=== PATIENT | female | born 1995 | race Caucasian/White ===

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

== ENCOUNTER 2017-01-08 17:19 | Emergency (ER) | payer SELFPAY | END 2017-01-08 17:40 | disposition home or self-care (01) | LOC: BURERS 17:19 | DX: L02.411 Cutaneous abscess of right axilla (principal) | CPT/HCPCS: 99283 ==

== ENCOUNTER 2017-06-11 19:20 | Emergency (ER) | payer SELFPAY | END 2017-06-11 19:41 | disposition home or self-care (01) | LOC: BURERS 19:20 | DX: K92.1 Melena (principal) | CPT/HCPCS: 99283 ==

== ENCOUNTER 2017-12-25 13:45 | Emergency (ER) | payer SELFPAY ==
[2017-12-25] MEDS ORDERED: Fluorescein Opthalmic Strip ONE (14:10)
== END 2017-12-25 16:49 | disposition home or self-care (01) ==
LOC: BURERS 13:45
DX: H10.9 Unspecified conjunctivitis (principal)
CPT/HCPCS: 99283

== ENCOUNTER 2020-01-16 23:07 | Emergency (ER) | payer SELFPAY ==
[2020-01-16] MEDS ORDERED: Adacel (T-DAP) 0.5 ML SYRINGE ONE (23:24)
[2020-01-16] MEDS ORDERED: Amoxicillin/Potassium Clav 875 MG TAB ONE ×2 (23:24→23:28)
== END 2020-01-16 23:30 | disposition home or self-care (01) ==
LOC: BURERS 23:07
DX: L03.113 Cellulitis of right upper limb (principal); W55.03XA Scratched by cat, initial encounter
CPT/HCPCS: 90471; 90715; 99283